=== PATIENT | male | born 1985 | race American Indian/Alaskan Native ===

== ENCOUNTER 2018-10-14 18:10 | Emergency (ER) | payer SELFPAY ==
[2018-10-14] MEDS ORDERED: Ketorolac 60 MG/2 ML SDV IM ONE (19:24)
[2018-10-14] MEDS ORDERED: HYDROmorphone 1 MG/ML Syringe IM ONE ×2 (19:24→19:58)
[2018-10-14] MEDS ORDERED: Diazepam 5 MG Tab PO ONE (19:24)
--- NOTE | 2018-10-14 20:24 | EDM.PDOC ---
ED HPI GENERAL MEDICAL PROBLEM - General Chief Complaint: Back Pain or Injury Stated Complaint: BACK PAIN Time Seen by Provider: 10/14/18 19:11 Source of Information: Reports: Patient History Limitations: Reports: No Limitations - History of Present Illness INITIAL COMMENTS - FREE TEXT/NARRATIVE: 33-year-old male presents for evaluation and treatment of low back pain. Patient reports pain started yesterday morning he was getting dressed. He feels he may twist his background. Patient is reporting pain across his lower back in into his buttocks and bilateral legs. No numbness or tingling into the legs. No weakness. No urinary or stool incontinence. He has been using Tylenol and Motrin as well as icy hot but he continues to have significant pain. Reports that he "herniated disc " In the past. Did not require surgery. 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 He is certainly herniated disc again tonight. Lower Back Pain Score (Numeric/FACES): 9 - Related Data Allergies Allergy/AdvReac Type Severity Reaction Status Date / Time No Known Allergies Allergy Verified 10/14/18 18:19 Home Meds: Home Meds Furosemide [Lasix] 40 mg PO DAILY 10/14/18 [History] Lisinopril 40 mg PO DAILY 10/14/18 [History] metFORMIN [Glucophage] 500 mg PO BIDMEALS 10/14/18 [History] Past Medical History Cardiovascular History: Reports: Hypertension Endocrine/Metabolic History: Reports: Diabetes, Type II Social & Family History - Tobacco Use Smoking Status *Q: Current Some Day Smoker Years of Tobacco use: 15 Packs/Tins Daily: 0 ED ROS GENERAL - Review of Systems Review Of Systems: See Below GI/Abdominal: Denies: Stool Incontinence : Denies: Incontinence Musculoskeletal: Reports: Back Pain (low back) Neurological: Denies: Numbness, Tingling, Weakness ED EXAM,LOWER BACK PAIN/INJURY - Physical Exam Exam: See Below Exam Limited By: No Limitations General Appearance: Alert, WD/WN, Mild Distress, Obese Throat/Mouth: Normal Inspection, Normal Voice, No Airway Compromise Neck: Normal Inspection, Supple, Non-Tender, Full Range of Motion Respiratory/Chest: No Respiratory Distress, Lungs Clear, Normal Breath Sounds Cardiovascular: Normal Peripheral Pulses, Regular Rate, Rhythm, No Murmur Back Exam: Normal Inspection, Paraspinal Tenderness (pain at the bilateral SI joints ). No: Vertebral Tenderness Extremities: Normal Inspection, Normal Capillary Refill Neurological: Alert, Normal Mood/Affect, Normal Dorsiflexion, Normal Plantar Flexion, Normal Gait Psychiatric: Normal Affect, Normal Mood Skin Exam: Warm, Dry, Normal Color Course - Vital Signs Last Recorded V/S: Last Vital Signs Temp 98.7 F 10/14/18 18:20 Pulse 103 H 10/14/18 18:20 Resp BP 148/100 H 10/14/18 18:20 Pulse Ox 98 10/14/18 18:20 - Orders/Labs/Meds Meds: Medications Discontinued Medications Generic Name Dose Route Start Last Admin Trade Name Freq PRN Reason Stop Dose Admin Diazepam 5 mg 10/14/18 19:24 10/14/18 19:37 Valium. PO 10/14/18 19:25 5 mg ONETIME ONE Administration Hydromorphone HCl 1 mg 10/14/18 19:24 10/14/18 19:38 Dilaudid IM 10/14/18 19:25 1 mg ONETIME ONE Administration Hydromorphone HCl 1 mg 10/14/18 19:58 10/14/18 20:13 Dilaudid IM 10/14/18 19:59 1 mg ONETIME ONE Administration Ketorolac Tromethamine 60 mg 10/14/18 19:24 10/14/18 19:39 Toradol IM 10/14/18 19:25 60 mg ONETIME ONE Administration - Re-Assessments/Exams Free Text/Narrative Re-Assessment/Exam: 10/14/18 21:04 Offered the patient an xray. Educated this would likely not change treatment plan as he has had not significant trauma and bones are unlikely to be affected. Agrees to forgo the xray. Discussed with the patient it is possible he herniated a disc, requires an MRI to confirm. Recommending symptomatic care and follow-up if PCP if he does not improve will likely need an MRI. Patient expressed understanding. checked on the patient. Feeling greatly improved. Will discharge home at this time. Departure - Departure Time of Disposition: 21:05 Disposition: Home, Self-Care 01 Condition: Fair Clinical Impression: Low back pain, Muscle spasm - Discharge Information *PRESCRIPTION DRUG MONITORING PROGRAM REVIEWED*: No *COPY OF PRESCRIPTION DRUG MONITORING REPORT IN PATIENT NINI: No Instructions: Muscle Cramps and Spasms, [id number], Back Pain, Adult Referrals: Sanna Michel MD [Primary Care Provider] - Forms: ED Department Discharge Additional Instructions: Rx for percocet 5-325mg tabs 1-2 tabs PO every 6-8 hours #2 [facility] Rx for flexeril 10mg 1 tab PO every 8 hours #30 from [facility] You were given medication in the ER that can affect your ability to drive and operate machinery. Do not drive or operate machinery within 10 hours of taking prescription narcotic pain medication. Recommend Aleve bid or ibuprofen every 6-8 hours for pain. For pain not relieved by an NSAID may take percocet 1-2 tabs PO every 6-8 hours as needed. Percocet is habit forming, take as few of these as needed to control your pain. Do not drive or operate machinery within 10 hours of taking narcotic pain medication. Recommend using moist heat or a topical product such as icyhot or bengay for pain relief. Rest but do not be completely inactive. Inactivity can worsen your pain. Follow-up with your PCP if not much better in 7-10 days. Please return to the ER should your symptoms change or worsen.
== END 2018-10-14 21:21 | disposition home or self-care (01) ==
LOC: JD.ED 18:10
DX: M54.5 Low back pain (principal); M62.830 Muscle spasm of back; Z79.899 Other long term (current) drug therapy; I10 Essential (primary) hypertension; E11.9 Type 2 diabetes mellitus without complications; F17.210 Nicotine dependence, cigarettes, uncomplicated
CPT/HCPCS: 96372; 99283; A9270; J1170; J1885

== ENCOUNTER 2021-04-21 22:22 | Emergency (ER) | payer MEDICAID ==
[2021-04-21] MEDS ORDERED: Diphtheria,Pertussis(Acell),Tetanus Vaccine 0.5 ML Syringe IM ONE (22:33)
[2021-04-21] MEDS ORDERED: Lidocaine 1% with EPINEPHrine 1:100,000 10 ML MDV INJECT ONE (22:33)
[2021-04-21] MEDS ORDERED: Lidocaine 1% 50 ML MDV ONE (22:49)
[2021-04-21] MEDS ORDERED: cefTRIAXone 1 GM, Lidocaine 1% 2.1 ML IM ONE ×2 (23:06)
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
--- NOTE | 2021-04-23 12:15 | CR ---
Left toes: 3 views of the left toes were obtained. Comparison: No prior toe or foot studies available. Fracture is identified within the distal phalanx of the third toe. Soft tissue injury is also seen within this toe. No additional osseous abnormality is appreciated. Impression: 1. Fracture within the distal phalanx of the left third toe as well as adjacent soft tissue injury. Diagnostic code #3
== END 2021-04-21 23:32 | disposition home or self-care (01) ==
LOC: JD.ED 22:22
DX: S92.535B Nondisplaced fracture of distal phalanx of left lesser toe(s), initial encounter for open fracture (principal); I10 Essential (primary) hypertension; E11.9 Type 2 diabetes mellitus without complications; E66.9 Obesity, unspecified; Z68.30 Body mass index [BMI] 30.0-30.9, adult; Z72.0 Tobacco use; Z23 Encounter for immunization; Z79.84 Long term (current) use of oral hypoglycemic drugs; Z79.899 Other long term (current) drug therapy; X58.XXXA Exposure to other specified factors, initial encounter
CPT/HCPCS: 12001; 73660; 90471; 90715; 96372; 99283; J0696; J2001